=== PATIENT | female | born 1980 | race Caucasian/White ===

== ENCOUNTER 2016-09-11 19:59 | Inpatient (IN) | payer BC, MEDICAID ==
[~2016-09-11] VITALS: Ht 152.4 cm; Wt 79.5 kg
[~2016-09-11 19:59] MED LIST: MOTRIN800 MG PO
[2016-09-11] MEDS ORDERED: PRENATAL PLUS I1 TAB PO (23:37)
[2016-09-11] MEDS ORDERED: FIBER500 MG PO (23:39)
[2016-09-14] MEDS ORDERED: LAN-O-SOOTHE7 GM TOP (09:58)
[2016-09-14] MEDS ORDERED: MOTRIN800 MG PO (09:58)
== END 2016-09-14 10:32 | disposition short-term general hospital (02) | DRG 775 ==
LOC: CLOBGYN 19:59 → LDRIP 19:59
PROVIDERS: ADMIT Family Medicine
PROC: 10E0XZZ Delivery of Products of Conception, External Approach (ICD-10-PCS; principal; 2016-09-12)
PROC: 3E0P7GC Introduction of Other Therapeutic Substance into Female Reproductive, Via Natural or Artificial Opening (ICD-10-PCS; 2016-09-12)
PROC: 10907ZC Drainage of Amniotic Fluid, Therapeutic from Products of Conception, Via Natural or Artificial Opening (ICD-10-PCS; 2016-09-12)
DX: O36.63X0 Maternal care for excessive fetal growth, third trimester, not applicable or unspecified (principal); O24.429 Gestational diabetes mellitus in childbirth, unspecified control; O66.9 Obstructed labor, unspecified; Z3A.39 39 weeks gestation of pregnancy; Z37.0 Single live birth
CPT/HCPCS: A9150; J0690; J1885; J2270; J2300; J2310; J2370; J2405; J2540; J2590; J2765; J2795; J3010